=== PATIENT | male | born 1960 | race Caucasian/White ===

== ENCOUNTER 2019-08-13 16:58 | Observation (INO) ==
[2019-08-13] MEDS ORDERED: NORMAL SALINE 1,000 ML IV ONE ×2 (17:02→18:12)
--- NOTE | 2019-08-13 17:02 | ERNOTE ---
Medical Problem HPI - Narrative Date of Service: 08/13/19 - General Time Seen by Provider: 08/13/19 17:00 Source: patient Exam Limitations: no limitations - Immun/Allergies/Home Medications Immunizations: IMMUNIZATION HX Immunizations Up to Date No History of Influenza Vaccine No Hx Pneumococcal Vaccination No Allergies/Adverse Reactions: Allergies Sulfa (Sulfonamide Antibiotics) Adverse Reaction (Verified 08/13/19 08:00) Vomiting Home Medications: HOME MEDICATIONS Famotidine [Pepcid] 40 mg PO HS #30 tab 08/13/19 [Last Taken Unknown] Metoclopramide HCl [Reglan] 5 mg PO ACHS #60 tab 08/13/19 [Last Taken Unknown] Ondansetron [Zofran Odt] 4 mg PO Q6H PRN #20 tab 08/13/19 [Last Taken Unknown] Tiotropium [place] [Spiriva] 1 cap INHALATION DAILY 08/13/19 [Last Taken Unknown] metFORMIN HCL [Glucophage] 500 mg PO BID #60 tab 08/13/19 [Last Taken Unknown] - History of Present History Narrative: 58 yr old male with history of DM, COPD, Baretts esophagus, HTN and marijuana use returns to the ER with intractable nausea, vomiting and epigastric pain. He was seen this morning by Dr. Schofield after experiencing epigastric pain, nausea and vomiting for 2 - 3 weeks. Flat and upright abdominal x-ray was unremarkable this morning. Lab work performed this morning was significant for glucose of 439, otherwise CBC, CMP, Amylase and lipase were all WNL. Urine was remarkable for glucose of 1000 and large ketones. He has not been taking any of his medication except his Spiriva. He was treated in the ER this morning and discharged. States he did not improve and has continued to be nauseated with moderate to severe epigastric tenderness with continous vomiting. Date (Duration): 08/13/19 Time (Timing): 17:01 Timing: constant, getting worse Severity: severe Modifying Factors - (Improves): Present: other - Nothing Modifying Factors - (Worsens): Present: other - nothing Review of Systems - Review of Systems Constitutional: Present: weakness, decreased activity level. Absent: recent illness, fever, diaphoresis EYE: Present: no symptoms reported ENT: Present: no symptoms reported Respiratory: Absent: shortness of breath, cough Cardiology: Present: chest pain - burning radiating from his epigastric region Gastrointestinal/Abdominal: Present: nausea, vomiting, abdominal pain, eating less, drinking less. Absent: diarrhea Genitourinary: Present: decreased urinary output Musculoskeletal: Absent: back pain, muscle pain Skin: Present: no symptoms reported Neurological: Present: anxiety Endocrine: Present: no symptoms reported Hematologic/Lymphatic: Present: no symptoms reported Psych: Present: anxiety All Other Systems: All systems neg except as marked Medical History (Last Reviewed 08/13/19 @ 21:05 by JOZEF Deras) Barretts esophagus COPD (chronic obstructive pulmonary disease) Diabetes HTN (hypertension) Surgical History: Surgical History (Last Reviewed 08/13/19 @ 21:05 by JOZEF Deras) Abnormal colonoscopy polp removed H/O tooth extraction History of carpal tunnel surgery Family History: Family History (Last Reviewed 08/13/19 @ 21:05 by JOZEF Deras) Other No pertinent family history Social History: (Last Reviewed 08/13/19 @ 21:05 by JOZEF Deras) Tobacco: Smoking Status: Current every day smoker Smoking cigarettes per day: 50 Alcohol: alcohol intake: former Substance Use: substance use type: marijuana Physical Exam - Physical Exam General Appearance: Present: wd/wn, alert, mild distress - wretching continually , anxious Head Exam: Present: normal inspection, no evidence of injury Eye Exam: Normal inspection: bilateral, PERRL: bilateral, EOMI: bilateral Ears, Nose, Throat: Present: normal except -, normal pharynx, dry mucous membranes Neck: Present: normal inspection Respiratory: Present: no respiratory distress, normal breath sounds, no accessory muscle use, chest nontender, lungs clear Cardiovascular/Chest: Present: no murmur, normal peripheral pulses, tachycardia Gastrointestinal/Abdominal: Present: nondistended, soft, tenderness - Tenderness over the epigastric region and to a lesser extent the entire abdomen , abnormal bowel sounds - decreased . Absent: distended, guarding Back Exam: Present: normal inspection, no CVA tenderness Extremity Exam: Present: normal inspection, normal range of motion, no edema Neurological Exam: Present: alert, oriented, normal mood/affect, no motor/sensory deficits Skin Exam: Present: normal color, warm/dry Progress - Results and Orders Patient's Lab Results:: I have reviewed the patient's lab results. Results and Orders: Laboratory Tests 08/13/19 08/13/19 17:04 17:04 WBC 9.3 D RBC 5.74 Hgb 17.7 Hct 49.4 Plt Count 198 Sodium 138 Potassium 4.1 Chloride 99 Carbon Dioxide 17.0 L Anion Gap 26.1 H BUN 20 Creatinine 1.04 Random Glucose 355 H Calcium 9.3 Laboratory Tests 08/13/19 08/13/19 17:04 17:40 pCO2 22.1 L pO2 102.5 HCO3 14.5 L Total CO2 15.2 L Base Excess -7.0 L ABG pH 7.44 ABG O2 Sat (Measured) 98.0 Serum Ketones Positive - 20mg/dl H - Vital Signs Patient's Vital Signs:: I have reviewed the patient's vital signs. - CT/Ultrasound CT/Ultrasound Narrative: CT abd/pelvis: No acute abnormalities. Hepatic steatosis. No bowel obstruction, free air or free fluid. No mucosal thickening or inflammatory change. - Progress/Reassessment Progress:: Improved - Slightly. Nausea and vomiting are better controlled. Resting better, pain improved. Progress Note-Subjective: 08/13/19 20:47 Test results, etiology and treatment plan discussed with patient and family. He was a bounce back to the ER today from this morning. He failed a trial of outpatient treatment. His hyperemesis was very difficulty to control in the ER requiring multiple medications to improve his symptoms. 08/13/19 21:01 Patient should be placed in Observation for IV fluids, control N/V, and to monitor blood sugars Case staffed with Dr. Peña who graciously agreed to accept his care. Plan - Plan Plan: Place in Observation Departure Clinical Impression: Intractable nausea and vomiting, Diabetic gastroparesis, Hyperemesis Uncontrolled diabetes mellitus Qualifiers: Diabetes mellitus type: type 2 Glycemic state: with hyperglycemia Qualified Code(s): E11.65 - Type 2 diabetes mellitus with hyperglycemia Hyperglycemia due to type 2 diabetes mellitus Qualifiers: Diabetes mellitus extermination inspector insulin use: without longterm use Qualified Code(s): E11.65 - Type 2 diabetes mellitus with hyperglycemia - Departure Disposition: Still a patient Condition: Good
[2019-08-13] MEDS ORDERED: diphenhydrAMINE HCL 50 MG/ML VIAL IV ONE ×2 (17:03→18:16)
[2019-08-13] MEDS ORDERED: chlorproMAZINE HCL 10 MG in NORMAL SALINE 50 ML IV ONE ×2 (17:03→18:16)
[2019-08-13] MEDS ORDERED: PANTOPRAZOLE SODIUM 40 MG/100 ML PIGGYBACK IV ONE ×2 (17:15→18:19)
[2019-08-13] MEDS ORDERED: INSULIN REGULAR, HUMAN 100 UNITS/ML VIAL IV ONE (17:24)
[2019-08-13 17:27] LABS: Hematocrit 49.4 % (42.0-52.0); Hemoglobin 17.7 gm/dL (13.5-18.0); Mean Cell Volume 86.1 fl (78-100); Mean Corpuscular Hemoglobin 30.8 pg (27-31); Mean Corpuscular Hgb Conc 35.8 g/dl (32-36); Mean Platelet Volume 10.4 fl (8-11.3); Neutrophil # 7.7 K/mm3 (1.3-6.0); Neutrophil % 83.3 % (42-75.0); Platelet Count 198 K/mm3 (150-450); Red Blood Count 5.74 M/mm3 (4.7-6.0); Red Cell Distribution Width 12.1 % (11.5-14.0); White Blood Count 9.3 K/mm3 (4.0-10.5)
[2019-08-13 17:30] LABS: Anion Gap 26.1 mmol/L (6.8-13.8); BUN/Creatinine Ratio 19.2 (9.0-21.6); Blood Urea Nitrogen 20 mg/dL (6-23); Calcium * 9.3 mg/dL (7.9-10.9); Chloride 99 mmol/L (97-106); Glucose * 355 mg/dL (70-110); Potassium 4.1 mmol/L (3.4-4.6); Sodium 138 mmol/L (132-142)
[2019-08-13] MEDS ORDERED: DIATRIZOATE MEGLUMINE, SODIUM 30 ML BTL PO ONE (18:19)
[2019-08-13] MEDS ORDERED: MORPHINE SULFATE 2 MG/ML DISP.SYRIN IV ONE (19:04)
[2019-08-13] MEDS ORDERED: ONDANSETRON HCL/PF 2 MG/ML VIAL IV ONE (19:17)
[2019-08-13] MEDS ORDERED: METOCLOPRAMIDE HCL 5 MG/ML VIAL IV ONE (20:23)
[2019-08-13] MEDS ORDERED: LORazepam 2 MG/ML DISP.SYRIN IV ONE (20:45)
[2019-08-13] MEDS ORDERED: NORMAL SALINE 1,000 ML IV PRN (21:09)
[2019-08-13] MEDS ORDERED: METOCLOPRAMIDE HCL 5 MG/ML VIAL IV PRN (21:14)
[2019-08-13] MEDS ORDERED: ONDANSETRON HCL/PF 2 MG/ML VIAL IV PRN (21:16)
[2019-08-13] MEDS ORDERED: FLU VACC QS2019-20(6MOS UP)/PF 60 MCG/0.5 ML SYRINGE IM ONE (21:43)
[2019-08-13] MEDS ORDERED: NICOTINE 21 MG PATC TD PRN (21:53)
[2019-08-13] MEDS ORDERED: ACETAMINOPHEN 325 MG TABLET PO PRN (21:54)
[2019-08-14] MEDS: PANTOPRAZOLE SODIUM 40 MG in NORMAL SALINE 100 ML IV SCH ×2 (05:22→18:02)
[2019-08-14 06:52] LABS: Albumin * 3.4 gm/dl (3.4-5.0); Anion Gap 21.1 mmol/L (6.8-13.8); BUN/Creatinine Ratio 17.4 (9.0-21.6); Bilirubin, Total 0.6 mg/dL (0.0-1.1); Ca. Corrected For Albumin 8.3 mg/dL (8.4-10.2); Calcium * 8.1 mg/dL (7.9-10.9); Carbon Dioxide 16.8 mmol/L (24-32.6); Potassium 3.9 mmol/L (3.4-4.6); Total Protein 6.4 gm/dL (6.2-8.2)
[2019-08-14] MEDS: LORazepam 2 MG/ML DISP.SYRIN IV PRN (07:51)
[2019-08-14] MEDS: INSULIN REGULAR, HUMAN 100 UNITS/ML VIAL SC SCH ×5 (08:08→23:59)
[2019-08-14 09:12] LABS: Amylase * 45 U/L (25-115); Lipase 202 U/L (73-393)
--- NOTE | 2019-08-14 09:38 | HP ---
Chief Complaint - Chief Complaint Date of Service: 08/14/19 - n Time of Service: 09:18 Chief Complaint: I have nausea and vomiting and epigastric pain of several weeks duration. History of Present Illness: 58-year-old male with past medical history of type 2 diabetes, diabetic gastroparesis, hypertension, LETA, insomnia, marijuana user, active smoker, Harmon's esophagus and COPD was evaluated ER due to worsening intractable nausea and vomiting and epigastric pain yesterday afternoon. Patient was seen earlier in the day yesterday morning and was treated for intractable nausea and vomiting that he said started 3 to 4 weeks ago but has gradually been getting worse. Patient reports that initially his symptoms occurred in the morning but got better throughout the day or nonexistent at night, however recently he is nauseous and vomited multiple times during the day. Patient was treated with multiple antiemetics as well as Benadryl in the ER and was discharged home but only to return to few minutes with ongoing nausea vomiting and worsening epigastric pain. Patient left his previous PCP due to differences over his treatments and has not seen a doctor in almost 1 year. He also stopped taking any of his medications specifically his diabetic medications over 3 months ago and has been having uncontrolled diabetes. He reports that he underwent an abscess drainage and the upper part of his mouth and since then has been difficult for him to take pills and that contributed to him not taking any of his medications. Evaluation in the ER demonstrated elevated blood sugar levels and presence of ketones in urine, however the patient was not acidotic. He maintains stable vitals but appeared uncomfortable and mildly dehydrated and decision to admit him for observation for management of his symptoms and monitoring was made. Medical History (Last Reviewed 08/13/19 @ 21:52 by Frida Arredondo RN) Barretts esophagus COPD (chronic obstructive pulmonary disease) Diabetes HTN (hypertension) Surgical History: Surgical History (Last Reviewed 08/13/19 @ 21:05 by JOZEF Deras) Abnormal colonoscopy polp removed H/O tooth extraction History of carpal tunnel surgery Family History: Family History (Last Reviewed 08/13/19 @ 21:52 by Frida Arredondo RN) Other No pertinent family history Social History: (Last Reviewed 08/13/19 @ 21:52 by Frida Arredondo RN) Tobacco: Smoking Status: Current every day smoker Smoking cigarettes per day: 50 Alcohol: alcohol intake: former Substance Use: substance use type: marijuana Peds Patient Hx - Developmental: No Pertinent Hx Peds Patient Hx - Medical: No Pertinent Hx - She Peds Patient Hx - Cardiac/Respiratory: No Pertinent Hx Peds Patient Hx - Surgical: No Surgical History Patient History - Cancer: No Hx of Cancer Immunizations: IMMUNIZATION HX Immunizations Up to Date No History of Influenza Vaccine No Hx Pneumococcal Vaccination No Allergies/Adverse Reactions: Allergies Allergy/AdvReac Type Severity Reaction Status Date / Time Sulfa (Sulfonamide AdvReac Vomiting Verified 08/13/19 08:00 Antibiotics) Home Medications: HOME MEDICATIONS Famotidine [Pepcid] 40 mg PO HS #30 tab 08/13/19 [Last Taken Unknown] Metoclopramide HCl [Reglan] 5 mg PO ACHS #60 tab 08/13/19 [Last Taken Unknown] Ondansetron [Zofran Odt] 4 mg PO Q6H PRN #20 tab 08/13/19 [Last Taken Unknown] Tiotropium [place] [Spiriva] 1 cap INHALATION DAILY 08/13/19 [Last Taken Unknown] metFORMIN HCL [Glucophage] 500 mg PO BID #60 tab 08/13/19 [Last Taken Unknown] Exam - Exam Vital Signs: Vital Signs - Last Taken Temp 37.1 C 08/14/19 06:00 Pulse 98 08/14/19 06:00 Resp 20 08/14/19 06:00 BP 145/86 H 08/14/19 06:00 Pulse Ox 100 08/14/19 06:00 Constitutional: Present: Alert, Oriented x3, Cooperative, Well developed, Well nourished, No distress, Looks Older than stated age ENT Exam: Present: normal ENT inspection, hearing grossly normal, pharynx normal, TMs normal Eye Exam: bilateral eye: normal inspection, PERRL, EOMI Neck: Present: non-tender, full range of motion, supple, normal inspection, trachea midline, limited range of motion Back Exam: Present: normal inspection, no CVA tenderness, no vertebral tenderness Respiratory: Present: chest non-tender, lungs clear, normal breath sounds, no respiratory distress, no accessory muscle use Cardiovascular/Chest: Present: normal peripheral pulses, regular rate, rhythm, no chest tenderness, no edema, no gallop, no JVD, no murmur, no rub Peripheral Pulses: carotid (R): 3+, carotid (L): 3+, femoral (R): 3+, femoral (L): 3+, dorsalis-pedis (R): 3+, dorsalis-pedis (L): 3+ Abdomen: Present: Normal bowel sounds, soft, nondistended, no rebound tend erness, no hepatospenomegaly, no masses, tender - Epigastric tenderness /Rectal: Present: Exam deferred Extremity: Present: normal range of motion, non-tender, normal inspection, no pedal edema, no calf tenderness, normal capillary refill Skin Exam: Present: normal color, warm/dry, no cyanosis Lymphatic: Present: no adenopathy Neurologic: Present: bank secrecy act officer II-XII nml as tested, normal cerebellar test, no motor/sensory deficits, alert, normal mood/affect, oriented x 3 Appearance: Present: appropriate appearance, appropriate insight, neat, no memory impairment Eye contact: Present: cooperative, good eye contact, normal speech Thoughts: Present: normal thought pattern, no apparent hallucination Diagnostic Studies: Abnormal Lab Results 08/13/19 08/13/19 08/13/19 Range/Units 17:04 17:04 17:40 Immature Gran % (Auto) 0.50 H (0.001-0.429) % Immature Gran # (Auto) 0.05 H (0.000-0.0310) K/mm3 Neutrophils % 83.3 H (42-75.0) % Lymphocytes % 12.4 L (20-51) % Neutrophils # 7.7 H (1.3-6.0) K/mm3 Lymphocytes # 1.15 L (1.5-3.5) k/mm3 pCO2 22.1 L (35.0-48.0) mmHg HCO3 14.5 L (21.0-28.0) mmol/L Total CO2 15.2 L (19.0-24.0) mmol/L Base Excess -7.0 L (-2.0-3.0) mmol/L Plasma Sodium (130-142) mmol/L Chloride (97-106) mmol/L Carbon Dioxide 17.0 L (24-32.6) mmol/L Anion Gap 26.1 H (6.8-13.8) mmol/L Random Glucose 355 H (70-110) mg/dL Calcium Adj for Albumin (8.4-10.2) mg/dL ALT (19-67) U/L Serum Ketones Positive - 20mg/dl H (NEGATIVE) 08/14/19 Range/Units 05:50 Immature Gran % (Auto) (0.001-0.429) % Immature Gran # (Auto) (0.000-0.0310) K/mm3 Neutrophils % (42-75.0) % Lymphocytes % (20-51) % Neutrophils # (1.3-6.0) K/mm3 Lymphocytes # (1.5-3.5) k/mm3 pCO2 (35.0-48.0) mmHg HCO3 (21.0-28.0) mmol/L Total CO2 (19.0-24.0) mmol/L Base Excess (-2.0-3.0) mmol/L Plasma Sodium 143 H (130-142) mmol/L Chloride 107 H (97-106) mmol/L Carbon Dioxide 16.8 L (24-32.6) mmol/L Anion Gap 21.1 H (6.8-13.8) mmol/L Random Glucose 245 H D (70-110) mg/dL Calcium Adj for Albumin 8.3 L (8.4-10.2) mg/dL ALT 118 H (19-67) U/L Serum Ketones (NEGATIVE) Laboratory Results WBC 9.3 K/mm3 (4.0-10.5) D 08/13/19 17:04 RBC 5.74 M/mm3 (4.7-6.0) 08/13/19 17:04 Hgb 17.7 gm/dL (13.5-18.0) 08/13/19 17:04 Hct 49.4 % (42.0-52.0) 08/13/19 17:04 MCV 86.1 fl (78-100) 08/13/19 17:04 MCH 30.8 pg (27-31) 08/13/19 17:04 MCHC 35.8 g/dl (32-36) 08/13/19 17:04 RDW 12.1 % (11.5-14.0) 08/13/19 17:04 Plt Count 198 K/mm3 (150-450) 08/13/19 17:04 MPV 10.4 fl (8-11.3) 08/13/19 17:04 Immature Gran % (Auto) 0.50 % (0.001-0.429) H 08/13/19 17:04 Immature Gran # (Auto) 0.05 K/mm3 (0.000-0.0310) H 08/13/19 17:04 Neutrophils % 83.3 % (42-75.0) H 08/13/19 17:04 Lymphocytes % 12.4 % (20-51) L 08/13/19 17:04 Monocytes % 2.9 % (0.0-9) 08/13/19 17:04 Eosinophils % 0.0 % (0.0-3.0) 08/13/19 17:04 Basophils % 0.9 % (0.0-1.0) 08/13/19 17:04 Nucleated RBC % 0.0 k/mm3 (0-1) 08/13/19 17:04 Neutrophils # 7.7 K/mm3 (1.3-6.0) H 08/13/19 17:04 Lymphocytes # 1.15 k/mm3 (1.5-3.5) L 08/13/19 17:04 Monocytes # 0.3 k/mm3 (0.0-1.0) 08/13/19 17:04 Eosinophils # 0.0 k/mm3 (0.0-0.7) 08/13/19 17:04 Absolute Basophils 0.1 k/mm3 (0.0-0.1) 08/13/19 17:04 pCO2 22.1 mmHg (35.0-48.0) L 08/13/19 17:40 pO2 102.5 mmHg (83.0-108.0) 08/13/19 17:40 HCO3 14.5 mmol/L (21.0-28.0) L 08/13/19 17:40 Total CO2 15.2 mmol/L (19.0-24.0) L 08/13/19 17:40 Base Excess -7.0 mmol/L (-2.0-3.0) L 08/13/19 17:40 ABG pH 7.44 (7.35-7.45) 08/13/19 17:40 ABG O2 Sat (Measured) 98.0 % (94.0-98.0) 08/13/19 17:40 Sodium 141 mmol/L (132-142) 08/14/19 05:50 Plasma Sodium 143 mmol/L (130-142) H 08/14/19 05:50 Potassium 3.9 mmol/L (3.4-4.6) 08/14/19 05:50 Chloride 107 mmol/L (97-106) H 08/14/19 05:50 Carbon Dioxide 16.8 mmol/L (24-32.6) L 08/14/19 05:50 Anion Gap 21.1 mmol/L (6.8-13.8) H 08/14/19 05:50 BUN 15 mg/dL (6-23) 08/14/19 05:50 Creatinine 0.86 mg/dL (0.4-1.4) 08/14/19 05:50 Est GFR (Non-Af Amer) 98 mL/min (60-130) D 08/14/19 05:50 BUN/Creatinine Ratio 17.4 (9.0-21.6) 08/14/19 05:50 Random Glucose 245 mg/dL (70-110) H D 08/14/19 05:50 Calcium 8.1 mg/dL (7.9-10.9) 08/14/19 05:50 Calcium Adj for Albumin 8.3 mg/dL (8.4-10.2) L 08/14/19 05:50 Total Bilirubin 0.6 mg/dL (0.0-1.1) 08/14/19 05:50 AST 34 U/L (0-48) 08/14/19 05:50 ALT 118 U/L (19-67) H 08/14/19 05:50 Alkaline Phosphatase 81 U/L (50-170) 08/14/19 05:50 Total Protein 6.4 gm/dL (6.2-8.2) 08/14/19 05:50 Albumin 3.4 gm/dl (3.4-5.0) 08/14/19 05:50 Amylase 45 U/L (25-115) 08/14/19 05:30 Lipase 202 U/L (73-393) 08/14/19 05:30 Serum Ketones Positive - 20mg/dl (NEGATIVE) H 08/13/19 17:04 Assessment/Plan - Narrative Narrative: Patient was evaluated and medical chart was reviewed and decision to admit to our inpatient [facility]rez at [facility] was made. His nausea and vomiting has improved and he denies any vomiting throughout the night, but he had a small episode of vomiting shortly after waking up this morning. He maintains stable vitals. It has become apparent that he is well controlled when he is given high-dose Zofran every couple of hours [id number] to help with his vomiting. Therefore orders for maintenance with Zofran were placed, we are currently hydrating him with IV fluids since the patient is still n.p.o. given his symptoms. During rounds this morning he complained of epigastric pain which is most likely due to his repetitive vomiting's over the past few days, amylase and lipase were ordered to evaluate the pancreas and to rule out pancreatitis. He was provided with education on diabetes and was counseled on the importance of compliance with his diabetes medication and the possible dangers his diabetes is uncontrolled for prolonged period of times. He was encouraged to establish with a new PCP in order to manage his chronic conditions and to keep him out of the hospital. Patient denies any drug or alcohol use and says he only smokes cigarettes and marijuana, his last time smoking marijuana was 3 to 4 days ago. Patient was welcomed to establish with me in the internal medicine clinic and for posthospitalization follow-up. We will order in a hemoglobin A1c to evaluate diabetes. - Assessment/Plan (1) Nausea and vomiting Problem: Acute Qualifiers: Vomiting Intractability: intractable (2) Diabetic gastroparesis Problem: Chronic (3) Uncontrolled diabetes mellitus Problem: Acute Qualifiers: Diabetes mellitus type: type 2 Glycemic state: with hyperglycemia Qualified Code(s): E11.65 - Type 2 diabetes mellitus with hyperglycemia (4) Non-compliant patient Problem: Chronic (5) Nicotine dependence Problem: Chronic
[2019-08-14] MEDS: TIOTROPIUM BROMIDE 5 CAP INHALER IH SCH ×2 (09:39→10:52)
[2019-08-14 09:42] LABS: Hemoglobin A1C 11.2 % (4.00-6.0)
[2019-08-14] MEDS: DEXTROSE 5%-NORMAL SALINE 1,000 ML IV PRN (14:06)
[2019-08-14] MEDS ORDERED: FAMOTIDINE 20 MG TABLET PO SCH (21:00)
[2019-08-15] MEDS: DEXTROSE 5%-NORMAL SALINE 1,000 ML IV PRN (00:43)
[2019-08-15] MEDS: LORazepam 2 MG/ML DISP.SYRIN IV PRN (00:50)
[2019-08-15] MEDS: INSULIN REGULAR, HUMAN 100 UNITS/ML VIAL SC SCH ×2 (04:28→08:53)
[2019-08-15] MEDS: PANTOPRAZOLE SODIUM 40 MG in NORMAL SALINE 100 ML IV SCH (05:56)
[2019-08-15] MEDS: TIOTROPIUM BROMIDE 5 CAP INHALER IH SCH (08:53)
--- NOTE | 2019-08-15 10:20 | DS ---
(1) Nausea and vomiting Problem: Resolved Qualifiers: Vomiting Intractability: intractable (2) Diabetic gastroparesis Problem: Chronic (3) Uncontrolled diabetes mellitus Problem: Acute Qualifiers: Diabetes mellitus type: type 2 Glycemic state: with hyperglycemia Qualified Code(s): E11.65 - Type 2 diabetes mellitus with hyperglycemia (4) Non-compliant patient Problem: Chronic (5) Nicotine dependence Problem: Chronic Qualifiers: Nicotine product type: cigarettes Date of Discharge:: 08/15/19 Description of Stay: 58-year-old male admitted for intractable nausea and vomiting, diabetic gastroparesis, Hyperglycemia, and uncontrolled type 2 diabetes was evaluated at bedside was found to be afebrile and in no acute distress. This morning patient reports that he did not vomit throughout the night and his nausea has resolved, in fact the last episode of vomiting was sometime yesterday evening. He also denies any abdominal pain but has his usual epigastric tenderness on deep palpation which he thinks is due to his Harmon's esophagus. He agreed to a trial of initiating diet in order to see if he tolerates. After patient was provided with a tray, he consumed only the milk and other soft foods and says he did not vomit or develop nausea but says that he had epigastric discomfort. It was explained to patient that with more than a week of retching and vomiting its normal to be sore and have discomfort when eating, it was proposed that we start him on clear liquids and progress the diet slowly since he was unable to tolerate any solids or heavy foods. Shortly after that patient's sister and another family member arrived and became angry and irritable that the patient is being discharged because they were told that EGD would be performed during hospitalization. When I return to the patient's room I asked the patient if he tolerated the diet okay he said yes he did not have nausea or vomiting but had epigastric discomfort while eating so he stopped eating. Patient's sister started shouting and demanding an EGD and the patient also became angry and says that an EGD should be done during this hospitalization. I explained to the patient again that EGD would have to be done on outpatient basis once he establishes with a PCP, during his hospitalization the priority was stopping the nausea and vomiting and stabilizing his blood sugars. However they continue to get angry and started shouting and said that I am to do what they are demanding. I explained to them very clearly that I am the doctor and I am not here to do what they say. I was accompanied by the classification case manager who witnessed the exchanged and we both decided to leave the room when all 3 individuals became verbally aggressive and started using foul and disrespectful language. I am discharging patient with instructions to follow-up with a PCP once established with him and with a prescription for metformin for his uncontrolled diabetes which he has not treated in years. Procedures Performed: none Results and Findings: Lab Pending Results 08/13/19 17:04: Sodium 138, Plasma Sodium 142, Potassium 4.1, Chloride 99, Carbon Dioxide 17.0 L, Anion Gap 26.1 H, BUN 20, Creatinine 1.04, Est GFR (Non- Af Amer) 79, BUN/Creatinine Ratio 19.2, Random Glucose 355 H, Calcium 9.3, Serum Ketones Positive - 20mg/dl H 08/13/19 17:04: WBC 9.3 D, RBC 5.74, Hgb 17.7, Hct 49.4, MCV 86.1, MCH 30.8, MCHC 35.8, RDW 12.1, Plt Count 198, MPV 10.4, Immature Gran % (Auto) 0.50 H, Immature Gran # (Auto) 0.05 H, Neutrophils % 83.3 H, Lymphocytes % 12.4 L, Monocytes % 2.9, Eosinophils % 0.0, Basophils % 0.9, Nucleated RBC % 0.0, Neutrophils # 7.7 H, Lymphocytes # 1.15 L, Monocytes # 0.3, Eosinophils # 0.0, Absolute Basophils 0.1 08/13/19 17:40: pCO2 22.1 L, pO2 102.5, HCO3 14.5 L, Total CO2 15.2 L, Base Excess -7.0 L, ABG pH 7.44, ABG O2 Sat (Measured) 98.0 08/14/19 05:30: Amylase 45, Lipase 202 08/14/19 05:30: Mean Blood Glucose 287, Hemoglobin A1c 11.2 H 08/14/19 05:50: Sodium 141, Plasma Sodium 143 H, Potassium 3.9, Chloride 107 H, Carbon Dioxide 16.8 L, Anion Gap 21.1 H, BUN 15, Creatinine 0.86, Est GFR (Non- Af Amer) 98 D, BUN/Creatinine Ratio 17.4, Random Glucose 245 H D, Calcium 8.1, Calcium Adj for Albumin 8.3 L, Total Bilirubin 0.6, AST 34, ALT 118 H, Alkaline Phosphatase 81, Total Protein 6.4, Albumin 3.4 Discharge Location: Home Disposition: Home self-care Condition: Good Face to Face Encounter completed per [facility] Guidelines: No Discharge Activity: Activity as tolerated Discharge Diet: Consistent carbs Complete Home Medications List: Complete Home Medication List: Famotidine [Pepcid] 40 mg PO HS #30 tab 08/13/19 Metoclopramide HCl [Reglan] 5 mg PO ACHS #60 tab 08/13/19 Ondansetron [Zofran Odt] 4 mg PO Q6H PRN #20 tab 08/13/19 metFORMIN HCL [Glucophage] 500 mg PO BIDWM 08/14/19
[2019-08-15] MEDS ORDERED: LISINOPRIL 5 MG TABLET PO ONE (10:21)
[2019-08-15 14:08] VITALS: BP 139/78
== END 2019-08-15 14:20 | disposition home or self-care (01) ==
LOC: ER 16:58 → MS 16:58
PROVIDERS: ADMIT Family Medicine; ATTEND Family Medicine
DX: E11.43 Type 2 diabetes mellitus with diabetic autonomic (poly)neuropathy; R10.13 Epigastric pain; R11.2 Nausea with vomiting, unspecified; K31.84 Gastroparesis; E11.65 Type 2 diabetes mellitus with hyperglycemia
CPT/HCPCS: 36415; 36600; 74177; 80048; 80053; 82009; 82150; 82803; 83036; 83690; 85025; 96365; 96366; 96367; 96372; 96375; 99285; G0378; J2405; Q9967